=== PATIENT | male | born 1975 | race Caucasian/White ===

== ENCOUNTER 2021-01-09 01:24 | Emergency (ER) | payer OTHER ==
[~2021-01-09] VITALS: Ht 182.9 cm; Wt 81.6 kg
[2021-01-09] MEDS ORDERED: INTESTINEX680 M2 PO (05:30)
[2021-01-09] MEDS ORDERED: NAPROXEN375 MG PO (05:30)
[2021-01-09] MEDS ORDERED: CLINDAMYCIN HC300 MG PO (05:30)
[2021-01-09] MEDS ORDERED: ACETAMINOPHEN650 M2 (17:27)
== END 2021-01-09 06:04 | disposition home or self-care (01) ==
LOC: ER 01:24
DX: L03.116 Cellulitis of left lower limb (principal); Z03.818 Encounter for observation for suspected exposure to other biological agents ruled out

== ENCOUNTER 2021-01-11 21:41 | Inpatient (IN) | payer OTHER ==
[~2021-01-11] VITALS: Ht 182.9 cm; Wt 81.6 kg
[~2021-01-11 21:41] MED LIST: ACETAMINOPHEN650 M2; CLINDAMYCIN HC300 MG PO; INTESTINEX680 M2 PO; NAPROXEN375 MG PO
[2021-01-18] MEDS ORDERED: KEFLEX750 MG PO (14:44)
== END 2021-01-18 15:03 | disposition home or self-care (01) | DRG 603 ==
LOC: ER 21:41 → MEDJ 01-12 17:51 → MEDI 01-12 17:51
PROVIDERS: ADMIT Internal Medicine; ATTEND Internal Medicine
PROC: 0J9P3ZZ Drainage of Left Lower Leg Subcutaneous Tissue and Fascia, Percutaneous Approach (ICD-10-PCS; principal; 2021-01-18)
DX: L03.116 Cellulitis of left lower limb (principal); S70.12XA Contusion of left thigh, initial encounter; R74.8 Abnormal levels of other serum enzymes; Z20.822 Contact with and (suspected) exposure to COVID-19; B95.61 Methicillin susceptible Staphylococcus aureus infection as the cause of diseases classified elsewhere